=== PATIENT | female | born 1980 | race Caucasian/White ===

== ENCOUNTER 2018-07-09 14:34 | Emergency (ER) | payer OTHER, SELFPAY ==
[2018-07-09] MEDS ORDERED: Proparacaine 0.5% Opth 15 ML BOT ONE (15:10)
[2018-07-09] MEDS ORDERED: Fluorescein Opthalmic Strip ONE (15:10)
== END 2018-07-09 16:35 | disposition home or self-care (01) ==
LOC: ERS 14:34
DX: H10.33 Unspecified acute conjunctivitis, bilateral (principal)
CPT/HCPCS: 99283

== ENCOUNTER 2021-10-06 15:13 | Outpatient (CLI) | payer OTHER | END 2021-10-06 15:14 | disposition home or self-care (01) | LOC: BICRAD 15:13 | PROVIDERS: ATTEND Nurse Practitioner Family | DX: U07.1 COVID-19 (principal); J12.82 Pneumonia due to coronavirus disease 2019; R91.8 Other nonspecific abnormal finding of lung field | CPT/HCPCS: 71046 ==